=== PATIENT | female | born 1985 | race Caucasian/White ===

== ENCOUNTER → 2016-03-28 | Outpatient (CLI) | payer MEDICAID ==
--- NOTE | 2016-03-28 16:09 | RADIOLOGY REPORT PS360 ---
EXAM: CERVICAL SPINE 4 OR 5 VIEWS HISTORY: NECK PAIN COMPARISON: None FINDINGS: Normal alignment. No fracture or dislocation. No lytic or blastic change. No significant degenerative change. The disc spaces are preserved. There is slight reversal cervical lordosis which may be due to patient positioning or muscle spasm. IMPRESSION: Reversal of lordosis otherwise negative
[2016-03-28 18:29] LABS: HEMOGLOBIN 12.1 g/dL (12.2-16.2); LYMPH # 2.7 K/mm3 (0.7-4.5); LYMPH % 31.8 % (10-50.0)
[2016-03-28 18:36] LABS: BUN 13 mg/dL (7-18)
[2016-03-28 18:41] LABS: GFR (ESTIMATED) 83 ML/MIN (59-)
[2016-03-30 08:40] LABS: Folate (Folic Acid) 14.9 ng/mL (>3.0); Vitamin D, 25-Hydroxy 14.7 ng/mL (30.0-100.0)
== END ==
LOC: RAD 14:49 → LAB 14:49
PROVIDERS: Physician Assistant
DX: M54.2 Cervicalgia (principal); R20.2 Paresthesia of skin; E55.9 Vitamin D deficiency, unspecified